=== PATIENT | female | born 1970 | race African-American/Black ===

== ENCOUNTER → 2024-07-19 13:46 | Emergency (ER) | payer OTHER, SELFPAY ==
[2024-07-19 13:57] VITALS: BP 163/100
[2024-07-19 18:12] VITALS: BP 151/91
--- NOTE | 2024-07-19 18:28 | ED.GENMED ---
History of Present Illness
General
Chief Complaint: Chest Pain
Source: patient
Exam Limitations: none
Time Seen by Provider: 07/19/24 18:11
Nursing documentation reviewed up to this point in time: agreed with
History of Present Illness
History of Present Illness:
Patient is a 53-year-old female with past medical history of hypertension who presents for evaluation. Patient reports over 11:30 AM after eating she noticed pain in her jaw and headache and felt her heart racing. When she got here to the ER she
felt more of a pressure/pain in the center of her chest. The jaw pain has subsided the headache is gone away. She had no associated shortness of breath. Though she does report she took Tylenol the waiting room .she admits to forgetting to take
her medication for blood pressure recently . She does not take it consistently.
She denies any recent illness fever chills cough. Denies any injury. She denies electric swelling. She does not smoke. No oral contraceptives or hormone therapy. No family history of cardiac disease. No family history PE. She has never had a
DVT PE.
Review of Systems
Review of Systems
Allergies reviewed?: Yes
All Other Systems: ROS reviewed and negative except as documented in HPI and ROS
Constitutional: Reports no symptoms; Denies fever, fatigue or chills
Respiratory: Denies trouble breathing
Cardiac: Reports chest pain and palpitations; Denies diaphoresis or syncope
ABD/GI: Reports no symptoms
: Reports no symptoms
Musculoskeletal: Reports no symptoms
Skin: Reports no symptoms
Neurological: Reports no symptoms
Hematologic/Lymphatic: Reports no symptoms
Phy Exam
General Physical Exam
General Presentation: no apparent distress
General age: appears stated age
General Skin: warm and dry
General Habitus: normal
General Mental: alert
Cardiovascular Exam
Cardiovascular Exam: regular rate/rhythm, no murmur and normal peripheral pulses
Pulmonary Exam
Pulmonary Exam: lungs clear, no respiratory distress and chest non tender
Gastrointestinal Exam
Gastrointestinal Exam: normal bowel sounds, non tender and soft
Neurological Exam
Neurological Exam: alert and oriented x3
Musculoskeletal Exam
Musculoskeletal Exam: full ROM
Skin Exam
Skin Exam: normal color and warm/dry
Psychiatric Exam
Psychiatric Exam: normal mood/affect
Scores
Heart Score for Chest Pain Patients
STEMI patient?: Not applicable
Course
Orders/Labs/Results
Orders:
Orders
07/19/24 13:47
Electrocardiogram (*1) Urgent
Reason for Study: Chest Pain
EKG- Treatment ONCE
07/19/24 18:22
Chest [CR Chest - 2 Views ] Urgent
Comment:
Reason For Exam: cp
07/19/24 19:42
Complete Blood Count/With Diff Urgent
Comprehensive Metabolic Panel Urgent
Troponin I Urgent
07/19/24 20:42
Electrocardiogram (*1) Urgent
Reason for Study: Chest Pain
07/19/24 22:33
Troponin I Urgent
07/19/24 22:40
EKG- Treatment ONCE
07/20/24
Electrocardiogram (*1) Stat
Reason for Study: Chest Pain
07/20/24 01:41
Troponin I Urgent
07/20/24 03:11
D-Dimer Urgent
Comment: REDRAW
Abnormal Lab Results
07/19/24
19:42
RBC 5.41 H 10^6/uL
(4.20-5.40)
MCH 25.9 L pg
(27.0-31.0)
MCHC 32.0 L g/dL
(33.0-37.0)
Plt Count 469 H 10^3/uL
(130-400)
Absolute Neuts (auto) 6.9 H 10^3/uL
(1.4-6.5)
Lymphocytes % 18.6 L %
(20.5-51.1)
BUN 18 H mg/dl
(7-17)
07/19/24 19:42
07/19/24 19:42
Vital Signs
Initial and Last Documented VS:
Initial Vital Signs
Temp Pulse Resp BP Pulse Ox
98.0 F 94 18 163/100 100
07/19/24 13:57 07/19/24 13:57 07/19/24 13:57 07/19/24 13:57 07/19/24 13:57
Last Documented Vital Signs
Temp Pulse Resp BP Pulse Ox
98.3 F 90 23 114/75 98
07/19/24 20:00 07/20/24 00:10 07/20/24 00:10 07/20/24 00:10 07/20/24 03:50
MDM/Problems Addressed
MDM/Problems Addressed:
53-year-old female presented with palpitations, jaw pain at work and then noticed chest discomfort while in the waiting room. During my exam patient reported the jaw pain and palpitations were resolved and the chest pain was going away.
Patient has no cardiac history she has been asymptomatic here in the ER in no acute distress .
initial cardiac troponin negative repeat cardiac troponin slightly increased both EKGs were unremarkable.
Negative chest x-ray
With minimally elevated repeat troponin Case discussed with ED physician Dr. Neves will do third troponin.
Third troponin negative patient remains asymptomatic sleeping comfortable. In addition D-dimer was checked and normal. Patient has not been tachycardic no shortness of breath not hypoxic will DC with outpatient cardiac hotline.
*EKG
Interpreted by ED Provider?: Yes
Interpretation: normal
Heart Rate: 87
Rate: normal
Rhythm: sinus
Ischemia: no ischemia
*Critical Care Note
Total Time (30-74mins, 75-104mins- exclusive of procedures): Not Applicable
ED Attending Note
-
Portions of this chart may have been created with voice recognition software.� Occasional wrong word or��sound alike� substitutions may have occurred due to the inherent limitations of voice recognition software.
Discharge Plan
Departure
Patient Disposition: Home (Routine Discharge)
Date of Disposition: 07/20/24
Time of Disposition: 03:47
Patient with high blood pressure during this ER visit?: Yes
Condition: Fair
Covid-19: Not Applicable
Discharge Problem:
Chest pain
Instructions: Chest Pain [facility] Follow Up
Referrals:
NONE,* [Family Provider] -
Activity Restrictions/Additional Instructions:
Follow-up with cardiology. As discussed you are placed on the cardiac hotline if you do not receive a phone call in the next several days please give the office a call to schedule an appointment as soon as possible. Return if any worsening of
symptoms.
Interventions
Interventions:
*Risk Screen - Suicide Last Done: 07/19/24 13:57
*General Assessment Last Done: 07/19/24 13:57
*Neglect/Abuse Screening Last Done: 07/19/24 13:57
ED- Fall Risk Assessment Last Done: 07/20/24 00:00
*ED COVID-19 Vaccine History Last Done: 07/19/24 13:57
ED- Cardiac Assessment Last Done: 07/20/24 02:04
Discharge Date and Time
Print Language: [email or web address]
[2024-07-19 19:49] LABS: % Basophils 0.2 % (0-2); % Eosinophils 1.7 % (0-6); % Immature Granulocytes 0.3 % (0-0.5); % Lymphocytes 18.6 % (20.5-51.1); % Monocytes 6.6 % (1.7-9.3); % Neutrophils 72.6 % (42.2-75.2); Absolute Eosinophils 0.2 10^3/uL (0-0.7); Absolute Lymphocytes 1.8 10^3/uL (1.2-3.4); Absolute Monocytes 0.6 10^3/uL (0.1-0.6); Absolute Neutrophils 6.9 10^3/uL (1.4-6.5); Hematocrit 43.8 % (37.0-47.0); Mean Corpuscular Hgb 25.9 pg (27.0-31.0); Mean Platelet Volume 8.9 fL (7.4-10.4); Nucleated Red Blood Cells % 0 %; Platelet Count 469 10^3/uL (130-400); Red Blood Cell Count 5.41 10^6/uL (4.20-5.40); White Blood Cell Count 9.6 10^3/uL (4.8-10.8)
[2024-07-19 20:00] VITALS: BP 120/109
[2024-07-19 20:13] LABS: Troponin I < 0.012 ng/ml
[2024-07-19 20:14] LABS: ALT (SGPT) 31 U/L (0-35); AST (SGOT) 33 U/L (14-36); Albumin 4.2 g/dl (3.5-5.0); Alkaline Phosphatase 63 U/L (38-126); Blood Urea Nitrogen 18 mg/dl (7-17); Calcium 9.5 mg/dl (8.4-10.2); Carbon Dioxide 24 mmol/L (22-30); Chloride 103 mmol/L (98-107); Glucose 91 mg/dl (70-99); Potassium 4.3 mmol/L (3.5-5.1); Sodium 137 mmol/L (135-145); Total Bilirubin 0.4 mg/dl (0.2-1.3); Total Protein 7.3 g/dl (6.3-8.2); eGFR > 60.00
[2024-07-19 21:00] VITALS: BP 118/84
[2024-07-19 23:01] LABS: Troponin I 0.013 ng/ml
[2024-07-20 00:10] VITALS: BP 114/75
[2024-07-20 02:39] LABS: Troponin I < 0.012 ng/ml
[2024-07-20 03:31] LABS: D-Dimer < 0.27 ug/mlFEU (0.00-0.50)
== END | disposition home or self-care (01) ==
LOC: EMR 13:46
PROVIDERS: Emergency Medicine; Nurse Practitioner; EMERGENCY PHYSICIAN Student in an Organized Health Care Education/Training Program
DX: R07.89 Other chest pain (principal); I10 Essential (primary) hypertension
CPT/HCPCS: 99283; 71046; 80053; 84484; 85025; 85379; 93005